=== PATIENT | female | born 1995 ===

== ENCOUNTER 2017-04-17 11:54 | Emergency (ER) | payer OTHER ==
--- NOTE | 2017-04-17 12:40 | RAD ---
HISTORY: Left ankle injury COMPARISONS: None VIEWS: 3, Frontal, lateral, and oblique views of the left ankle FINDINGS: BONE DENSITY: Normal. BONES: There is no displaced fracture. JOINTS: There is no arthropathy. ALIGNMENT: There is no dislocation. SOFT TISSUES: There is circumferential soft tissue swelling OTHER FINDINGS: None. IMPRESSION: SOFT TISSUE SWELLING. NO ACUTE OSSEOUS INJURY. IF SYMPTOMS PERSIST, RECOMMEND REPEAT IMAGING.
--- NOTE | 2017-04-23 09:50 | UC ---
Gurpreet Lunsford Angela, scribed for María Elena Batista MD on 04/17/17 at 1217 . Lower Extremity/Ankle HPI - HPI Summary HPI Summary: This pt is a 21 y/o female presenting to [facility] c/o left ankle pain s/p injury while playing basketball 1 week ago. Pt reports she was jumping up while playing basketball and when landing on directly on her ankle. Pt has been putting ice and keeping her leg elevated with mild relief. She has also been taking ibuprofen with relief. She states she is able to wear weight but ambulates with a limp. Pt was given crutches at her school [facility] and is currently using them to ambulate. Pt was unable to come to [facility] before as she has been busy with an event from school. She has a cardiopulmonary physical therapist in the gym, suggested xrays and further evaluation. - History of Current Complaint Stated Complaint: ANKLE INJURY Time Seen by Provider: 04/17/17 12:14 Hx Obtained From: Patient Onset/Duration: Lasting Weeks - 1 week Aggravating Factor(s): Ambulation Alleviating Factor(s): Elevation, Ice, OTC Meds - ibuprofen Able to Bear Weight: Yes - Allergies/Home Medications Allergies/Adverse Reactions: Allergies Allergy/AdvReac Type Severity Reaction Status Date / Time No Known Allergies Allergy Verified 04/17/17 12:21 Home Medications: Home Medications ALPRAZolam TAB* [Xanax TAB*] 0.5 mg PO DAILY 04/17/17 [History Confirmed ] PMH/Surg Hx/FS Hx/Imm Hx Other Endocrine History: DENIES: diabetes Respiratory History: Asthma Psychological History: Depression - Family History Known Family History: Negative: Cardiac Disease, Hypertension, Diabetes - Social History Alcohol Use: Occasionally Substance Use Type: None Smoking Status (MU): Never Smoked Tobacco Review of Systems Constitutional: Negative Skin: Negative Eyes: Negative ENT: Negative Respiratory: Negative Cardiovascular: Negative Gastrointestinal: Negative Genitourinary: Negative Neurovascular: Negative Musculoskeletal: Other: - left ankle pain Neurological: Negative Is Patient Immunocompromised?: No All Other Systems Reviewed And Are Negative: Yes Physical Exam Triage Information Reviewed: Yes Appearance: Well-Nourished Vital Signs: Initial Vital Signs Temp 97.3 F 04/17/17 12:18 Pulse 80 04/17/17 12:18 Resp 16 04/17/17 12:18 BP 113/57 04/17/17 12:18 Pulse Ox 99 04/17/17 12:18 Vital Signs Reviewed: Yes Eye Exam: Normal ENT Exam: Normal Respiratory Exam: Normal, Other - No dyspnea, no tachypnea, normal respiratory rate Cardiovascular Exam: Normal Cardiovascular: Positive: Other: - Heart rate regular, good general skin color, good capillary refill Abdominal Exam: Normal Abdomen Description: Positive: Nontender, No Organomegaly, Soft Bowel Sounds: Positive: Present Musculoskeletal: Positive: Other: - LLE: talofibular ligament region is tender. Medial malleolar tenderness. 1-2 + edema, consistent with dependent edema. Palpable pulses DP/PT. Positive distal sensation to light touch. Capillary refill is excellent. No proximal tib-fib tenderness. Neurological Exam: Normal - nonfocal, grossly intact Psychological Exam: Normal - conversing easily and appropriately Skin Exam: Normal - no visible or reported rash Diagnostics - Radiology Left ankle XR Xray Interpretation: Positive (See Comments) - IMPRESSION: soft tissue swelling. No acute osseous injury. If symptoms persist, recommend repeat imaging. ED physician has reviewed this radiology report and agrees. Radiology Interpretation Completed By: Radiologist Lower Extremity Course/Dx - Course Course Of Treatment: Pt declines prescription for ibuprofen. Reviewed xray, reviewed xray report with pt. Reviewed coa / tx plan. Questions as posed answered to the best of my ability. Has crutches. Recommend offloading as much as possible, and cautioned about returning too soon to weight-bearing activities. Referrals as below. - Differential Dx/Diagnosis Provider Diagnoses: Left ankle sprain, subacute. Discharge - Discharge Plan Condition: Stable Disposition: HOME Patient Education Materials: Ankle Sprain (ED) Referrals: [facility] [Outside] No Primary Care Phys,NOPCP [Primary Care Provider] - Additional Instructions: Please follow up with your other sports coach or instructor, routine. Follow up Sports Medicine (see above) 1 -2 weeks as possible. Crutches until walking (including stairs) not painful. Elevate as much as possible, frequently throughout the day. Hugo or brace as needed for comfort and swelling. Seek medical attention for worse or new problems. The documentation as recorded by the Gurpreet gardner Angela accurately reflects the service I personally performed and the decisions made by me, María Elena Batista MD.
== END 2017-04-17 13:10 | disposition home or self-care (01) ==
LOC: EDBD → UCEAST 11:54
DX: S93.402A Sprain of unspecified ligament of left ankle, initial encounter (principal); X58.XXXA Exposure to other specified factors, initial encounter; Y93.67 Activity, basketball; Y92.310 Basketball court as the place of occurrence of the external cause; J45.909 Unspecified asthma, uncomplicated; F32.9 Major depressive disorder, single episode, unspecified
CPT/HCPCS: 99202; G0463